=== PATIENT | male | born 1985 | race Two or more races ===

== ENCOUNTER → 2025-01-15 | Outpatient (CLI) | payer SELFPAY ==
[2025-01-15 15:09] LABS: % Variance 5 %; % Variance Motility 0 %; Count Side 1 21; Count Side 2 20; Motl CLS 1 60; Motl CLS 2 60; Room Temperature 24 (20-27C (Area)); Sperm Count 20 Million (20-50); Sperm Motility 60 % (>=50)
== END | disposition home or self-care (01) ==
LOC: COPL 12:29
PROVIDERS: Referring Provider Physician Assistant; Visit Provider Physician Assistant
DX: N46.9 Male infertility, unspecified (principal)
CPT/HCPCS: 89310